=== PATIENT | female | born 1965 | race Caucasian/White ===

== ENCOUNTER 2023-07-02 06:15 | Day surgery (SDC) | payer OTHER, SELFPAY ==
[2023-07-02] VITALS (22 sets, daily range): BP systolic 86–117; BP diastolic 48–77; PULSE 56–77; RESP 14–16; TEMP 36.2–37; O2SAT 90–97; BMI 39.2
--- OUTSIDE RECORDS SUMMARY | 2023-07-02 06:16 | XMS_ITS | Referral Summary ---
Author Name Unknown Organization [facility] Address [address] [place] [address] Care Team Providers Care Vp Outcomes Name Role Phone Unavailable Primary Care Provider Unavailabl e Source Comments Patient records contain information from all sites at [facility]. For routine questions regarding patient records, call [phone] during business hours, M-F 8:00 AM - 5:00 PM Central Time. Record requests for emergency care only can be directed to [phone] at any time.[facility] Allergies Active Allergy Reactions Criticality Noted Date Comments Nsaids (Non-Steroidal Anti-Inflammatory Drug) Other (see comments) 06/02/2013 Patient had bariatric surgery. Should not ever take NSAIDS due to high risk for gastric ulcers. Medications Medication Sig Dispensed Refills Start Date End Date Status lidocaine 2 % mouth solution 05/28/2019 Active lidocaine-prilocaine (EMLA) 2.5-2.5 % cream 08/17/2019 Active ondansetron (ZOFRAN) 8 mg tablet Take 8 mg by mouth. 04/06/2019 Acti ve prochlorperazine (COMPAZINE) 10 mg tablet Take 10 mg by mouth. 04/06/2019 Acti ve miscellaneous medical supply [facility] CPAP machine for home use at pressure: 5-16 CM H20 , Heated humidifier x 1, Humidifier chamber x 1, nasal mask with cushion x 1, Heated tubing x 1, Headgear x 1, Filters: Disposable x 1pk & Reusable x 1pk, Length of Need: 99 months, Frequency of use: Daily 11/10/2018 Active anastrozole (ARIMIDEX) 1 mg tablet Take 1 mg by mouth daily. To start 1 week after radiation completes 09/15/2019 Active Active Problems Problem Noted Date Diagnosed Date Malignant Neoplasm Of Breast Lower Outer Quadrant Female Right 08/21/2019 Cancer Staging:Clinical: Unsigned Pathologic stage from 08/21/2019:Stage IIA(pT2, pN1a, cM0, G3, ER+, MI+, HER2-, Oncotype DX score: 36) - Unsigned Immunizations Name Administration Dates Next Due HepA Adult 02/14/2006,07/25/2004 Td (Adult), adsorbed 12/10/2003 Social History Tobacco Use Types Packs/Day Years Used Date Smoking Tobacco: Never Assessed Nutrition Answer Date Recorded Nutrition: EVOO Fat Source Unknown 04/15 Nutrition: Servings of Fruits/Vegetables per Day Not on file 04/15/2020 Dental Answer Date Recorded Dental: Regular Dentist Unknown 04/16/19 21 Sex and Gender Information Value Date Recorded Sex Assigned at Not on file Gender Identity Female 06/14/2020 4:15 PM CDT Sexual Orientation Straight 06/14/2020 4: 15 PM CDT Last Filed Vital Signs Vital Sign Reading Time Taken Comments Blood Pressure 115/52 08/27/2019 1:47 PM CDT Pulse 70 08/27/2019 1:47 PM CDT Temperature 36.5 ??C (97.7 ??F) 11/12/2019 3:00 PM CD T Respiratory Rate - - Oxygen Saturation - - Inhaled Oxygen Concentration - - Weight 77.3 kg (170 lb 6.7 oz) 03/29/2020 10:09 AM CATTLE CARE WORKER Height 160.4 cm (5' 3.15) 03/29/2020 10:[address] Body Mass Index 30.04 03/29/2020 10:09 AM CATTLE CARE WORKER Plan of Treatment Not on file Procedures Procedure Name Priority Date/Time Associated Diagnosis Comments EXTI COMPREHENSIVE METABOLIC PANEL, S/P Routine 01/18/2022 2:56 PM CATTLE CARE WORKER OUTSIDE MG MAMMOGRAM Routine 01/26/2019 9:45 AM CATTLE CARE WORKER from Last 3 Months or Most Recently Relevant to Health Maintenance Results * XR MAMMO POST CLIP PLCMT RT-Outside Mammogram (01/26/2019 9:45 AM CATTLE CARE WORKER) Narrative IIMS - 08/19/2019 9:15 AM CDT This order has been created and auto-finalized to support the import of outside images. If available, original interpretation can be found on the Media Tab in Chart Review, in Document Viewer, or as an image in QREADS. If a re-interpretation or overread is required please follow defined workflow. ?? Provider Not In System IMG BI PROCEDURES [facility]IMS NA from Last 3 Months or Most Recently Relevant to Health Maintenance
--- OUTSIDE RECORDS SUMMARY | 2023-07-02 06:16 | XMS_ITS | Clinical Summary ---
Author Name Unknown Organization [facility] Address [address] [place] [address] Care Team Providers Care Row Boss Hoeing Name Role Phone Unavailable Primary Care Provider Unavailabl e Source Comments Patient records contain information from all sites at [facility]. For routine questions regarding patient records, call [phone] during business hours, M-F 8:00 AM - 5:00 PM Central Time. Record requests for emergency care only can be directed to [phone] at any time.[facility] Allergies Active Allergy Reactions Criticality Noted Date [...] mouth. 04/06/2019 Acti ve miscellaneous medical supply [facility] CPAP machine for home use at pressure: [...] from 08/21/2019:Stage IIA(pT2, pN1a, cM0, G3, ER+, ME+, HER2-, Oncotype DX score: 36) - Unsigned [...] (170 lb 6.7 oz) 03/29/2020 10:09 AM LEGAL PROCESS SPECIALIST Height 160.4 cm (5' 3.15) 03/29/2020 10:[address] Body Mass Index 30.04 03/29/2020 10:09 AM LEGAL PROCESS SPECIALIST Plan of Treatment Health Maintenance Due Date Last Done Comments CT Colonography 1963 Cervical Cancer Screening 1965 Cologuard 1965 Colonoscopy 1965 Colorectal Cancer Screening 1965 FIT 1965 HIV Screening 1965 Hepatitis C Screening 1965 Lipid (Cholesterol) Screening 1963 COVID-19 Vaccine (#1) 07/26/1968 Zoster Vaccines (1 of 2) 07/26/2013 Mammogram 01/27/2020 01/26/2019, 01/26/2019 DTaP,Tdap,and Td Vaccines (2 - Td or Tdap) 01/06/2022 01/07/2012, 12/10/2003 Influenza Vaccine (#1) 2022 9, 10/24/2017, 10/26/2016, Additional history exists Depression Screening (Annual PHQ-2) 02/11/2023 Fasting Glucose for Diabetes Screening 01/18/2025 01/18/2022, 07/25/2021, 03/14/2021, Additional history exists Hepatitis B Vaccines Completed 09/06/2006, 04/10/2006, 03/13/2006 Pneumococcal vaccine (0-64 years) Aged Out No longer eligible based on patient's age to complete this topic Procedures Procedure Name Priority Date/Time Associated Diagnosis Comments EXTI COMPREHENSIVE METABOLIC PANEL, S/P Routine 01/18/2022 2:56 PM LEGAL PROCESS SPECIALIST OUTSIDE MG MAMMOGRAM Routine 01/26/2019 9:45 AM LEGAL PROCESS SPECIALIST from Last 3 Months or Most Recently Relevant to Health Maintenance Results * XR MAMMO POST CLIP PLCMT RT-Outside Mammogram (01/26/2019 9:45 AM LEGAL PROCESS SPECIALIST) Narrative IIMS - 08/19/2019 9:15 AM CDT This order has been created and auto-finalized to support the import of outside images. If available, original interpretation can be found on the Media Tab in Chart Review, in Document Viewer, or as an image in QREADS. If a re-interpretation or overread is required please follow defined workflow. ?? Provider Not In System IMG BI PROCEDURES Performing Organization Address City/State/[facility] Co de Phone Number IIMS NA from Last 3 Months or Most Recently Relevant to Health Maintenance
--- OUTSIDE RECORDS SUMMARY | 2023-07-02 06:16 | XMS_ITS ---
Author Name Unknown Organization [facility] Address [address] [place] [address] Care Team Providers Care Accounting System Expert Name Role Phone Unavailable Unavailable Unavailable Surgery Details Not on file Complications Check Surgery Details section. Procedure Estimated Blood Loss Check Surgery Details section. Procedure Findings Check Surgery Details section. Procedure Specimens Taken Check Surgery Details section.
--- OUTSIDE RECORDS SUMMARY | 2023-07-02 06:16 | XMS_ITS ---
Author Name Unknown Organization [facility] Address [address] [place] [address] Care Team Providers Care Unhairer Name Role Phone Unavailable Primary Care Provider Unavailabl e Active Problems Problem Noted Date Diagnosed Date Malignant Neoplasm Of Breast Lower Outer Quadrant Female Right 08/21/2019 Cancer Staging:Clinical: Unsigned Pathologic stage from 08/21/2019:Stage IIA(pT2, pN1a, cM0, G3, ER+, ID+, HER2-, Oncotype DX score: 36) - Unsigned Current Oncology Plans No current plan information found. Past Plans No past plan information found. Radiation Treatments * Plan Last Treated On Elapsed Days Fractions Treated Prescribed Fraction Dose Prescribed Total Dose [id number] 11/12/2019 35 25 of 25 200 cGy 5,000 cGy Reference Point Last Treated On Elapsed Days Session Dose Total Dose [id number] 11/12/2019 35 200 cGy 5,000 cGy
--- OUTSIDE RECORDS SUMMARY | 2023-07-02 06:17 | XMS_ITS | Clinical Summary ---
Author Name Unknown Organization [facility] [facility] Address [place], [place] [address] Care Team Providers Care Cane Pusher Name Role Phone Aliyah Steward Malou SMALL Primary Care Provider Maldonado Chambers RN Unavailable Unavailable Pankaj Esteves SENIOR SQL SERVER DBA Unavailable [phone] Lavonne Rodarte MD Unavailable [phone] Marsha Christianson OFFSET PLATE MAKER Unavailable Allergies Active Allergy Reactions Criticality Noted Date Comments Nsaids (Non-Steroidal Anti-Inflammatory Drug) Other - Describe In Comment Field 06/02/2013 Patient had bariatric surgery. Should not ever take NSAIDS due to high risk for gastric ulcers. Medications Medication Sig Dispensed Refills Start Date End Date Status multivitamin (MVI) tablet Take 1 Tablet by mouth once daily. 0 08/29/2021 Active Rkdgk-3-HPU-EPA-F nadine Oil 1,000 mg (120 mg-180 mg) cap Take 1 Capsule (1,000 mg) by mouth. 0 08/29/2021 Active nystatin (MYCOSTATIN) creamIndications: Fissure in skin Apply topically to affected area(s) two times daily. 30 g 2 05/16/2022 Active CPAPIndications:O SA on CPAP CPAP machine for home use at pressure: 4-16 CM H20 , Heated humidifier x 1, Humidifier chamber x 1, nasal mask with cushion x 1, Heated tubing x 1, Headgear x 1, Filters: Disposable x 1pk & Reusable x 1pk, Length of Need: 99 months, Frequency of use: Daily 1 Each 12 02/20/2023 Active CPAPIndications:O SA on CPAP CPAP machine for home use at pressure: 5-16 CM H20 , Heated humidifier x 1, Humidifier chamber x 1, nasal mask with cushion x 1, Heated tubing x 1, Headgear x 1, Filters: Disposable x 1pk & Reusable x 1pk, Length of Need: 99 months, Frequency of use: Daily 1 Device 11 11/10/2018 06/13/2023 Discontinued (*Patient states no longer taking) Active Problems Problem Noted Date Diagnosed Date Chemotherapy induced neutropenia 04/09/2019 Invasive ductal carcinoma of breast, female, rig ht 03/31/2019 Cancer Staging:Clinical: Unsigned KAHLIL on CPAP 10/03/2016 Achlorhydria 06/02/2013 Vitamin B12 deficiency 06/02/2013 Meniere's disease 01/12/2013 Overview: 2010: left endolymphatic sac enhancement Anosmia 01/12/2013 Overview: Diagnoses 06/2004 Major depressive disorder, r ecurrent episode, severe, without mention of psychotic behavior 12/01/2012 Generalized anxiety disorder 12/01/2012 Bereavement, uncomplicated 03/03/2010 Sensorineural hearing loss, bilateral 06/28/2009 Vitamin D deficiency 05/28/2008 Cramp of limb 09/15/2007 Pain in joint, lower leg 09/15/2007 Obesity, unspecified 09/15/2007 Mixed hyperlipidemia 01/01/2007 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 06/2006 Resolved Problems Problem Noted Date Diagnosed Date Resolved Date Morbid obesity 02/13/2013 10/31/2017 Type II or unspecified type diabetes mellitus without mention of complication, not stated as uncontrolled 11/06/2012 06/03/2014 Vitamin D deficiency 01/16/2012 013 Adjustment disorder with mix ed anxiety and depressed mood 04/27/2008 06/03/2014 Ingrowing nail 10/10/2006 09/15/2007 Encounters Date Type Department Care Team Description 06/13/2023 7:50 AM CDT Preop Visit [address] [id number] Aliyah Steward, Pre-Op Exam (R knee replacement (full) July [address] [facility] [address] terry) 06/13/2023 Travel 05/14/2023 Telephone [facility] [address] [place], [place] [id number] Marsha Christianson, OFFSET PLATE MAKER Appointment 05/07/2023 3:30 PM CDT Office Visit [facility] [address] [place] [address] Dre, Coreen Boston AuD Hearing Aid (adjustment) 05/06/2023 8:00 AM CDT Office Visit [facility] [address] [place] [address] Dre, Coreen Boston, AuD Hearing Aid (malfunction) 05/06/2023 Travel 04/24/2023 12:30 PM CDT Office Visit [facility] [address] [place] [address] Dre, Coreen Boston AuD Hearing Aid (Problem - walk in/drop off) 04/24/2023 Travel from Last 3 Months Immunizations Name Administration Dates Next Due Hepatitis A (Adult) 02/14/2006,07/25/2004 Hepatitis B (Adult) 09/06/2006,04/10/2006,200609/10/2006 Influenza Virus, Unspecified 11/25/2014 Influenza, IIV3 (Age 6-35 mos) 10/26/2014 Influenza, IIV3 (Age >=3 years) 10/27/19 17,01/03/2014,11/10/2012, 2,11/15/2010,12/02/2009 Influenza, IIV4 10/30/2018,10/24/2017,11/05/2012 Td (Age >=7 Years) 12/10/2003 Tdap 01/07/2012 Family History Medical History Relation Name Comments Cancer-colon Father Hypertension Father Diabetes Mother Hyperlipidemia Mother Hypertension Mother Cancer-breast No Family History Relation Name Status Comments Father Stroke Mother Diabetes Social History Tobacco Use Types Packs/Day Years Used Date Smoking Tobacco: Never Smokeless Tobacco: Never Tobacco Cessation:Counseling Given: Yes Alcohol Use Standard Drinks/Week Comments Not Currently 0 (1 standard drink = 0.6 oz pur e alcohol) rare PHQ-2 Answer Date Recorded PHQ-2 Score 0 01/22/2019 Social Connections Answer Date Recorded Frequency of Communication with Friends and Fami ly Not on file 02/09/2021 Financial Resource Strain Answer Date R ecorded Difficulty of Paying Living Expenses Not on file 02/09/2021 Difficulty of Paying Living Expenses Not on file 02/09/2021 Sex and Gender Information Value Date Recorded Sex Assigned at Not on file Gender Identity Not on file Sexual Orientation Not on file Obstetrics History Para Term AB IAB SAB Ectopic Multiple Livin g Live Births 0 0 0 0 0 0 0 0 0 0 Last Filed Vital Signs Vital Sign Reading Time Taken Comments Blood Pressure 92/62 06/13/2023 8:13 AM CDT Pulse 65 06/13/2023 8:13 AM CDT Temperature 36.6 ??C (97.9 ??F) 02/01/2023 3:10 PM CS T Respiratory Rate 16 06/13/2023 8:13 AM CDT Oxygen Saturation 98% 06/13/2023 8:13 AM CDT Inhaled Oxygen Concentration - - Weight 103.6 kg (228 lb 8 oz) 06/13/2023 8:13 AM CDT Height 162.6 cm (5' 4) 06/13/2023 8:13 AM CDT Body Mass Index 39.22 06/13/2023 8:13 AM CDT Plan of Treatment Upcoming Encounters Date Type Department Care Team (Late st Contact Info) Description 09/16/2023 3:30 PM CDT Appointment [facility] [address] [place] [address] 09/19/2023 3:30 PM CDT Office Visit [facility] [address] [place] [address] Lavonne Rodarte MD [address] [place] [address] Health Maintenance Due Date Last Done Comments COVID-19 vaccine series (#1) 07/26/1968 Pneumococcal series for age 6-64 (1 of 2 - PCV) 07/26/1969 HIV for age 15-65 07/26/1978 Hepatitis C screening for ag e 18-79 07/26/1981 Zoster (shingles) series for age 50+ (1 of 2) 07/26/1982 Pap test for age 21-65 01/06/2011 01/07/2008, 2003 Fecal testing non-DNA (FIT,FOBT,iFOBT) for age 45-75 10/30/2017 10/30/2016, 11/20/2014 Depression screening for age 12+ 01/27/2020 01/26/2019, 01/22/2019, 10/01/2016, Additional history exists Tetanus booster 01/06/2022 01/07/2012, 12/10/2003 Influenza for age 50-64 10/13/2023 10/31/19, 10/24/2017, 10/26/2016, Additional history exists BMI (ht and wt on same day) for age 18+ 06/12/2024 06/13/2023, 02/20/2023, 08/29/2021, Additional history exists Lipids for age 45-75 06/12/2028 06/13/2023, 06/15/2015, 10/15/2012, Additional history exists Tdap Completed 01/07/2012 Medical Devices Implanted Type Area Second Miller Device Identifier Shelf Expiration Date Model / Serial / Lot Power Port Isp Mri 6fr [id number] - [id number] Implanted:Qty: 1 on 04/02/2019 by David Gonzales DO at [facility] Left: Chest [employer] 05/11/2020 [id number] / / [id number] Procedures Procedure Name Priority Date/Time Associated Diagnosis Comments CBC WITH AUTO DIFFERENTIAL Routine 06/13/2023 8:58 AM CDT Preoperative general physical examination Mixed hyperlipidemia LIPID PANEL W REFLEX MEASURED LDL Routine 06/13/2023 8:58 AM CDT Mixed hyperlipidemia CBC WITH AUTO DIFFERENTIAL Routine 06/13/2023 8:58 AM CDT Preoperative general physical examination Mixed hyperlipidemia COMP METABOLIC PANEL Routine 06/13/2023 8:58 AM CDT Preoperative general physical examination Mixed hyperlipidemia OCCULT BLOOD IFOBT STOOL Routine 10/30/2016 3:45 PM CDT Screening for colon cancer FLEET SERVICE MANAGER THIN PREP PAP SCREEN IMAGED Routine 01/07/2008 10:35 AM OFFAL BALER Screening for Malignant Neoplasm of the Cervix from Last 3 Months or Most Recently Relevant to Health Maintenance Results * (ABNORMAL) CBC WITH AUTO DIFFERENTIAL (06/13/2023 8:58 AM CDT) WHITE BLOOD COUNT 6.5 4.5 - 11.0 thou/cu mm 06/13/2023 9:40 AM [facility] RED BLOOD COUNT 3.72(L) 4.00 - 5.20 mil/cu mm 06/13/2023 9:40 AM [facility] HEMOGLOBIN 12.4 12.0 - 16.0 g/dL 06/13/2023 9:40 AM [facility] HEMATOCRIT 37.4 33.0 - 51.0 % 06/13/2023 9:40 AM [facility] MCV 101(H) 80 - 100 fL 06/13/2023 9:40 AM [facility] MCH 33.3 26.0 - 34.0 pg 06/13/2023 9:40 AM [facility] MCHC 33.2 32.0 - 36.0 g/dL 06/13/2023 9:40 AM [facility] RDW 13.7 11.5 - 15.5 % 06/13/2023 9:40 AM [facility] PLATELET COUNT 231 140 - 440 thou/cu mm 06/13/2023 9:40 AM [facility] MPV 9.5 6.5 - 11.0 fL 06/13/2023 9:40 AM [facility] % NEUT 48.1 % 06/13/2023 9:40 AM [facility] % LYMPH 38.7 % 06/13/2023 9:40 AM [facility] % MONO 10.4 % 06/13/2023 9:40 AM [facility] % EOS 2.0 % 06/13/2023 9:40 AM [facility] % BASO 0.8 % 06/13/2023 9:40 AM T [facility] ABSOLUTE NEUTROPHILS 3.1 1.7 - 7.0 thou/cu mm 06/13/2023 9:40 AM T [facility] ABSOLUTE LYMPHOCYTES 2.5 0.9 - 2.9 thou/cu mm 06/13/2023 9:40 AM T [facility] ABSOLUTE MONOCYTES 0.7 <0.9 thou/cu mm 06/13/2023 9:40 AM [facility] ABSOLUTE EOSINOPHILS 0.1 <0.5 thou/cu mm 06/13/2023 9:40 AM [facility] ABSOLUTE BASOPHILS 0.1 <0.3 thou/cu mm 06/13/2023 9:40 AM [facility] Blood BLOOD SPECIMEN / Unknown Butterfly / Unknown 06/13/2023 8:58 AM CDT 06/13/2023 8:59 AM CDT Aliyah Steward DO HEMATOLOGY [facility] [address] [place] [address] * (ABNORMAL) LIPID PANEL W REFLEX MEASURED LDL (06/13/2023 8:58 AM CDT) CHOLESTEROL,TOTAL 228(H) 100 - 199 mg/dL 06/13/2023 9:59 AM [facility] Comment: Cholesterol, Total Reference Ranges Desirable <200 mg/dL Borderline 200-239 mg/dL High >=240 mg/dL TRIGLYCERIDES 234(H) <150 mg/dL 06/13/2023 9:59 AM [facility] HDL CHOLESTEROL 50 >40 mg/dL 9:59 AM [facility] NON-HDL CHOLESTEROL 178(H) <145 mg/dl 06/13/2023 9:59 AM [facility] CHOL/HDL RATIO 4.56(H) <4.50 06/13/2023 9:59 AM [facility] LDL CHOLESTEROL 131(H) <=130 mg/dL 06/13/2023 9:59 AM [facility] VLDL CHOLESTEROL 47(H) <=30 mg/dL 06/13/2023 9:59 AM [facility] PROVIDER ORDERED STATUS RANDOM 06/13/2023 9:59 AM [facility] Blood BLOOD SPECIMEN / Unknown Butterfly / Unknown 06/13/2023 8:58 AM CDT 06/13/2023 8:59 AM T Aliyah Steward DO CHEMISTRY [facility] [address] [place] [address] * (ABNORMAL) COMP METABOLIC PANEL (06/13/2023 8:58 AM CDT) SODIUM 139 136 - 145 mmol/L 06/13/2023 9:59 AM [facility] POTASSIUM 4.0 3.5 - 5.1 mmol/L 06/13/2023 9:59 AM [facility] CHLORIDE 102 98 - 107 mmol/L 06/13/2023 9:59 AM [facility] CO2,TOTAL 27 22 - 29 mmol/L 06/13/2023 9:59 AM [facility] ANION GAP 10 5 - 18 06/13/2023 9:59 AM [facility] GLUCOSE 104(H) 70 - 99 mg/dL 06/13/2023 9:59 AM [facility] CALCIUM 9.6 8.6 - 10.0 mg/dL 06/13/2023 9:59 AM [facility] BUN 13 6 - 20 mg/dL 06/13/2023 9:59 AM [facility] CREATININE 0.55 0.50 - 0.90 mg/dL 06/13/2023 9:59 AM [facility] BUN/CREAT RATIO 24(H) 10 - 20 9:59 AM T [facility] eGFR >90 >90 mL/min/1.7 3m2 06/13/2023 9:59 AM T [facility] Comment:As of 2021, eG FR is calculated by the CKD-EPI creatinine equation without race adjustment. ??eGFR can be influenced by muscle mass, exercise, and diet. ??The reported eGFR is an estimation only and is only applicable if the renal function is stable. ALBUMIN 4.1 4.0 - 4.9 g/dL 06/13/2023 9:59 AM T [facility] PROTEIN,TOTAL 7.7 6.0 - 8.0 g/dL 06/13/2023 9:59 AM [facility] BILIRUBIN,TOTAL 0.4 0.0 - 1.2 mg/dL 06/13/2023 9:59 AM [facility] ALK PHOSPHATASE 87 35 - 104 IU/L 06/13/2023 9:59 AM [facility] ALT (SGPT) 9(L) 10 - 35 IU/L 06/13/2023 9:59 AM [facility] AST (SGOT) 27 10 - 35 IU/L 06/13/2023 9:59 AM [facility] Blood BLOOD SPECIMEN / Unknown Butterfly / Unknown 06/13/2023 8:58 AM CDT 06/13/2023 8:59 AM CDT Aliyah Steward DO CHEMISTRY Performing Organization Address City/State/[facility] Co de Phone Number [facility] [address] [place] [address] * OCCULT BLOOD IFOBT STOOL (10/30/2016 3:45 PM CDT) STOOL BLOOD ,IFOBT Negative Negative 10/30/2016 4:08 PM CDT [facility] Stool STOOL SPECIMEN / Unknown Non-Blood / Unknown 10/30/2016 3:45 PM CDT 10/30/2016 3:46 PM CDT Aliyah Steward DO [facility] [address] [place] [address], * FLEET SERVICE MANAGER THIN PREP PAP SCREEN IMAGED (01/07/2008 10:35 AM OFFAL BALER) CYTOLOGY ??CYTOPATHOLOGY REPORT ??[facility] [place] ?? Status: Final Report ? [id number] ?? CLINICAL INFORMATION ?Date of Last LMP ?: 12/27/2007 ?Last Pap Date ? : 12/10/03 ?Last Pap Result ? : NIL ?ABN [place]/Bx Past 5 YRS: None ?Hormone Usage ? : BCP/OCP/Patch/Ring ?Menstrual Status ?: Regular Periods ?[place]/Bx done today ?: No ?Additional Data ? : None given ?? HPV Request ?: HPV if ASCUS ?? SPECIMEN SOURCE ?: Cervical/vaginal ThinPrep Vial, screening ?? SPECIMEN ADEQUACY ?: Satisfactory for evaluation Endocervical ?component present. ? INTERPRETATION/RES ULT: ?Negative for intraepithelial lesion or malignancy (NIL) ? Cytology 1st Screener : ??djs ?? Signed by: ? djs ?? This specimen was screened by the FDA approved ThinPrep Imaging ?? System and manually reviewed. ?? NOTE: The Pap test is a screening technique, not a diagnostic ?? procedure. It is used primarily to screen for squamous cancers and ?? precursor lesions. Published studies have shown that it is subject to ?? both false negative and false positive results. The pap test should ?? not be used as the sole means to diagnose or exclude pre-malignant and ?? malignant lesions. ?? COLLECTED: 01/07/08 ?? ACCESSIONED: 01/07/08 ?? SIGNED: 01/16/08 [facility] PAP [place] CODE NIL [facility] Cervical (Cervical) 01/07/2008 10:35 AM OFFAL BALER 01/07/2008 10:33 AM OFFAL BALER Tati Freitas William PATHOLOGY/CYTOLOGY [facility] [place]NAL ZIP [address] [address] from Last 3 Months or Most Recently Relevant to Health Maintenance Advance Directives Documents on File Type Date Recorded Patient Director Pharmacology Expl anation Healthcare Directive 02/25/2019 12:00 AM 0 02/25/2019 * Full Code (Latest Code Status on File) Date Activated Date Inactivated Comments 04/02/2019 10:28 AM 04/02/2019 6:03 PM Question Answer Comments Code Status Discussion: Discussed * Full Code Date Activated Date Inactivated Comments 02/25/2019 10:00 AM 02/26/2019 4:17 PM Question Answer Comments Code Status Discussion: Not Discussed * Full Code Date Activated Date Inactivated Comments 06/01/2013 6:07 AM 06/02/2013 4:56 PM Care Teams Cane Pusher Relationship Specialty Start Date End Date Aliyah Steward DO [address] [facility] [place] [address] PCP - General Internal Medicine 11/07/15 Maldonado Chambers, RN [address] [facility] [place] [address] Cancer Nurse Coordinator Registered Nurse 01/30/19 Danielito, COLBY Hassan [address] [place] [address] Third Grade Teacher 04/08/19 Lavonne Rodarte MD [address] [facility] [place] [address] Oncology Hematology and Oncology 09/14/19 Marsha Christianson, OFFSET PLATE MAKER [address] [place] [address] Oncology Nurse Practitioner - Family 09/14/19
[2023-07-02] MEDS: SODIUM CHLORIDE 0.9 % (FLUSH) 10 ML SYRINGE IVF (06:45)
[2023-07-02] MEDS: LACTATED RINGERS 1000 ML 1,000 ML 100 ML IV ×2 (06:45→08:06)
[2023-07-02] MEDS: ACETAMINOPHEN 500 MG TABLET 1000 MG PO ×2 (06:45→12:30)
[2023-07-02] MEDS: OXYCODONE (CR) 10 MG TAB.ER.12H PO (06:45)
[2023-07-02] MEDS: fentaNYL 100 MCG/2 ML inj IVP (07:00)
[2023-07-02] MEDS: MIDAZOLAM HCL 1 MG/ML inj IVP (07:00)
--- NOTE | 2023-07-02 07:12 | SUR.PREOP ---
TIME?OUT:?0659 PT/RN/MDA?VERIFICATION?OF?SURGICAL?SITE Right Knee,?PROCEDURE Nerve Block,?AND?CONSENT OBTAINED?PRIOR?TO?INVASIVE?PROCEDURE.
--- NOTE | 2023-07-02 07:19 | W.PM.NB ---
Nerve Block Nerve Block Time Seen by Provider: 07:00 Date Seen: 07/02/23 Type of block requested by surgeon for post-operative analgesia: adductor canal Side: right Time out performed: Yes Verification of patient name: Yes Verification of date of : Yes Site marking: site marked Name of person performing procedure: Eulalio Continuous monitoring Was continuous monitoring of O2 sat, B/P, phototypesetting equipment monitor, recorded every 15 minutes?: Yes Procedure Checklist: sterile prep, needles and gloves Ultrasound guided. Images saved: Yes Medications given in 5ml increments after negative aspiration: Ropivicaine %: 0.5 mL: 20 Needle gauge: 20 Decadron (mg): 10 Precedex (mcg): 25 Patient tolerated procedure well: Yes Additional comments: Needle noted adjacent to nerve Block Charges Block Charge (with Pro Fee): Femoral Nerve Use of Ultrasound Machine for Block: Yes- US Guidance/pain block
--- NOTE | 2023-07-02 07:20 | W.PM.NB ---
Nerve Block Nerve Block Time Seen by Provider: 07:00 Date Seen: 07/02/23 Type of block requested by surgeon for post-operative analgesia: geniculars Side: right Time out performed: Yes Verification of patient name: Yes Verification of date of : Yes Site marking: site marked Name of person performing procedure: Eulalio Continuous monitoring Was continuous monitoring of O2 sat, B/P, residential monitor, recorded every 15 minutes?: Yes Procedure Checklist: sterile prep, needles and gloves Medications given in 5ml increments after negative aspiration: Ropivicaine %: 0.5 mL: 9 Needle gauge: 25 Patient tolerated procedure well: Yes Block Charges Block Charge (with Pro Fee): Genicular Nerve Block Use of Ultrasound Machine for Block: No
--- NOTE | 2023-07-02 07:20 | W.ANESCHARGE ---
Anesthesia Charges Start Date/Time Anesthesia Start Date: 07/02/23 Anesthesia Start Time: 07:30 Stop Date/Time Anesthesia Stop Date: 07/02/23 Anesthesia Stop Time: 10:21
[2023-07-02] MEDS: TRANEXAMIC ACID 100 MG/ML INJ 1000 MG IV (07:45)
[2023-07-02] MEDS: CEFAZOLIN 2 GM INJ IVP (07:45)
--- NOTE | 2023-07-02 09:26 | XR_ITS ---
Patient: HAILEY DEMPSEY Facility:?[facility] Patient ID:?[id number] Site Patient ID:?[id number] Site :?1965 Study:?XRay-Knee Right Post op-07/02/2023 10:44:43 AM Ordering Physician:Hector Watt Final Report: Indication: Postop Technique: Two views right knee Findings/Impression: Hardware from a right total knee arthroplasty is in satisfactory position. Bone alignment is normal. No sign of acute fracture. Postop changes are within normal limits. Dictated by Kevon Richards MD @ 07/02/2023 11:53:11 AM Signed by:?Kevon Richards MD @07/02/2023 11:53:11 AM (Electronic Signature)
--- NOTE | 2023-07-02 09:28 | PM.ORPRC ---
Procedure Note Date of procedure: 07/02/23 Procedure: PREOPERATIVE DIAGNOSIS: Right knee osteoarthritis, retained hardware POSTOPERATIVE DIAGNOSIS: Right knee osteoarthritis, retained hardware NAME OF OPERATION: Right total knee arthroplasty, hardware removal deep SURGEON: Nazario Watt MD APARTMENT RENTAL CLERK: Tova Luong PA-C ANESTHESIA: Spinal ESTIMATED BLOOD LOSS: 0 mL COMPLICATIONS: None SPECIMENS: None DRAINS: None PREOPERATIVE ANTIBIOTICS: Ancef 2 grams, antibiotic impregnated cement IMPLANTS: 1. J&J Attune revision CRS # 5 posterior stabilized femur with a 14 mm x 50 mm cemented stem 2. # 5 revision CRS fixed-bearing tibia, with a 14 mm x 50 mm cemented stem 3. # 5 posterior stabilized, 5 mm fixed-bearing polyethylene 4. 38 patella INDICATIONS: The patient is a 57-year-old with a longstanding history of severe, unrelenting right knee pain secondary to end-stage (grade IV) right knee osteoarthritis. Despite appropriate nonoperative management, including activity modification, anti-inflammatories, vlea-ari-ojfhfwn pain medication, bracing, physical therapy, and injections they continue to have pain and disability. Operative intervention was offered. She has previously undergone medial opening wedge proximal tibial osteotomy with the Arthrex peek block and screws for fixation. The risks, benefits and expected outcomes were discussed in detail. These included but were not limited to: Infection, bleeding, injury to blood vessel or nerve, venous thromboembolism. All questions were answered to their satisfaction. Use of an assistant teaching professor was necessary throughout the case for patient positioning and safety, soft tissue retraction, and closure. A modifier 22 should be added to this case. The patient's previous surgery, with retained hardware and scarring made exposure extremely difficult. Additionally, the patient's BMI of 40 added time and expense with stems on both sides of the joint to reduce the risk of aseptic loosening. PROCEDURE: Spinal anesthesia was administered. The patient was placed supine on the operating table. The assistant teaching professor made sure the patient was positioned appropriately. The lower extremity was prepped and draped in the usual sterile fashion. The limb was exsanguinated with the Bennett bandage. The pneumatic tourniquet was inflated to 300 mmHg. A standard anterior incision was made with the knee in flexion. Subcutaneous dissection was sharply taken through fascial layer #1. Full-thickness medial and lateral flaps were elevated. The assistant teaching professor retracted the soft tissues and protected them throughout the case. A standard subvastus approach was made. The patella was everted. The infrapatellar fat pad was resected. The menisci and cruciate ligaments were sharply d?brided. Marginal osteophytes were d?brided with the rongeur. The drill was used to penetrate the femoral canal. The canal was aspirated and irrigated with pulse lavage. The intramedullary femoral guide was placed for a 5-degree valgus cut, removing 10 mm off the distal femur. The saw was used to make the cut. Whitesides line and the trans epicondylar axis were marked. The femoral sizing guide was pinned onto the distal femur. Three degrees of external rotation nicely parallels the transepicondylar axis. Pins were placed for posterior referencing. The four-in-one cutting guide was pinned onto the distal femur. The anterior, posterior, and chamfer cuts were made. The assistant teaching professor protected the collateral ligaments. The revision trial was placed. The box cuts were made. The drill was used x2. The stemmed, boxed trial was placed and was an excellent fit. Attention was then turned to the proximal tibia. The extramedullary tibial guide was placed for a neutral varus/valgus cut with 5 degrees of posterior slope, removing 2 mm based off the medial tibial surface. The assistant teaching professor protected the collateral ligaments and the neurovascular bundle. The saw was used to make the cut. Trial components were placed. The knee was tight in both flexion and extension. Therefore, we replaced the tibial cutting guide, advancing it 2 mm. The saw was used to make the cut. Trial components were placed. Now the knee was nicely balanced in both flexion and extension. This cut through the tips of the peak screws used to fix the proximal tibial osteotomy. The trial components were removed. The tray was placed in appropriate rotation, parallel to our tibial cutting pins. It was pinned by the assistant teaching professor and the drill x2 was used. It was more difficult to get the drill to advanced down the canal, because of the peek screws crossing the tibia. We removed several parts of the screws, through the canal. We were able to advance the drill to the appropriate depth, without penetrating the cortex. The stemmed tibial trial was placed. The punch was used. The tray was removed. The punch was used again. Attention was then turned to the patella. [place] patellar thickness was 22.5 mm. The lobster claw resection guide was used with the 9.5 mm adolfo. The saw was used to make the cut. Drill holes were made by the assistant teaching professor. The trial was placed and was an excellent fit. Cancellous surfaces were irrigated with pulse lavage and thoroughly dried by the assistant teaching professor. We cemented the tibial component, then the femoral component. We impacted the 5 mm polyethylene onto the tibial tray. The knee was brought into full extension. We then cemented the patellar component. Excessive cement was removed. The cement was allowed to harden. The knee was taken through a range of motion and was found to be nicely balanced in both flexion and extension. The patella tracks centrally. The assistant teaching professor did a three minute dilute Betadine solution soak. The assistant teaching professor irrigated the wound with 3 liters of normal saline via pulse lavage. The assistant teaching professor reapproximated the extensor mechanism with #1 Vicryl in an interrupted eiefez-cb-sbqjz fashion. The assistant teaching professor then ran the extensor mechanism with a #1 PDO Stratafix. The assistant teaching professor closed the subcutaneous tissues with a 3-0 Stratafix and the skin with a running 3-0 Stratafix in a subcuticular fashion. Glue was used to seal the skin. The assistant teaching professor placed a dry dressing. Sponge and needle counts were correct x2. The patient tolerated the procedure well. There were no apparent complications. They were carefully transferred to the hospital bed and taken to the postanesthesia care unit in satisfactory condition. PLAN: The patient will be mobilized with physical therapy. Aspirin will be used for DVT prophylaxis. They will be discharged to home once medically appropriate.
[2023-07-02] MEDS: BUPIVACAINE 0.25% 30 ML INJECTION (10:12)
[2023-07-02] MEDS: methylPREDNISolone acetate 80 MG/ML INJ 40 MG INTRA-ARTI (10:12)
--- NOTE | 2023-07-02 10:46 | W.ANESCHARGE ---
Anesthesia Charges Start Date/Time Anesthesia Start Date: 07/02/23 Anesthesia Start Time: 07:30 Stop Date/Time Anesthesia Stop Date: 07/02/23 Anesthesia Stop Time: 10:21
[2023-07-02] MEDS: OXYCODONE 5 MG TABLET PO (12:30)
== END 2023-07-02 14:13 | disposition home or self-care (01) ==
LOC: OR 06:15
PROVIDERS: PCP Internal Medicine; Visit Provider Orthopaedic Surgery
PROC: (CPT 27447; principal; 2023-07-02 07:45)
DX: M17.11 Unilateral primary osteoarthritis, right knee (principal); M25.561 Pain in right knee; G89.18 Other acute postprocedural pain; E66.9 Obesity, unspecified; Z68.41 Body mass index [BMI] 40.0-44.9, adult; G47.33 Obstructive sleep apnea (adult) (pediatric)
CPT/HCPCS: 27447; 20680; 01402; 64447; 64454; 73560; 76942; 97110; 97116; 97161; A9270; C1776; J0665; J0690; J1010; J1100; J2250; J2405; J2704; J2795; J3010; J3490; J7120

== ENCOUNTER 2023-08-20 09:30 | Outpatient (RCR) | payer OTHER, SELFPAY | END 2023-08-20 11:09 | disposition home or self-care (01) | PROVIDERS: PCP Internal Medicine; Visit Provider Orthopaedic Surgery | DX: M17.0 Bilateral primary osteoarthritis of knee (principal); Z51.89 Encounter for other specified aftercare | CPT/HCPCS: 97110; 97140; 97161; 97535 ==

== ENCOUNTER 2024-06-23 06:12 | Day surgery (SDC) | payer OTHER, SELFPAY ==
[2024-06-23] VITALS (13 sets, daily range): BP systolic 85–123; BP diastolic 54–77; PULSE 52–72; RESP 16–22; TEMP 36.2–36.8; O2SAT 90–98; BMI 39.3
[2024-06-23] MEDS: LACTATED RINGERS 1000 ML 1,000 ML 100 ML IV (06:51)
[2024-06-23] MEDS: SODIUM CHLORIDE 0.9 % (FLUSH) 10 ML SYRINGE IVF (06:51)
[2024-06-23] MEDS: CEFAZOLIN 1 GM inj IVP (07:25)
[2024-06-23] MEDS: BUPIVACAINE 0.25% 30 ML INJECTION (07:52)
--- NOTE | 2024-06-23 08:09 | PM.ORPRC ---
Procedure Note Date of procedure: 06/23/24 Procedure: PREOPERATIVE DIAGNOSIS: Right total knee arthroplasty patellar clunk syndrome POSTOPERATIVE DIAGNOSIS: Right total knee arthroplasty patellar clunk syndrome NAME OF OPERATION: Right total knee arthroplasty arthroscopic debridement SURGEON: Nazario Watt MD AEROSPACE QUALITY ENGINEER: Tova Luong PA-C, Susanna Garcia, MS4 ANESTHESIA: Spinal ESTIMATED BLOOD LOSS: 0 mL COMPLICATIONS: None SPECIMENS: None DRAINS: None PREOPERATIVE ANTIBIOTICS: Ancef 2 gram INDICATIONS: The patient is a 58-year-old with a history of right total knee arthroplasty patellar clunk syndrome. Operative intervention was recommended. The risks, benefits and expected outcomes were discussed in detail. These included but were not limited to: Infection, bleeding, injury to blood vessel or nerve, venous thromboembolism. All questions were answered to their satisfaction. PROCEDURE: Spinal anesthesia was administered. The patient was placed supine on the operating room table. The right lower extremity was prepped and draped in the usual sterile fashion. The limb was exsanguinated with the Bennett bandage. The pneumatic tourniquet was inflated to 225 mmHg. A standard anterolateral portal was established. The arthroscope was introduced. The working portal was established anteromedially. Diagnostic arthroscopy was performed with findings as follows: The patellar component is intact with circumferential scarring surrounding it. The femoral component is normal, the tibial polyethylene is normal. The scarring posterior to the patellar tendon was debrided with the radiofrequency probe and shaver. A superolateral portal was placed. Then we aggressively debrided around the patellar component and posterior to the quads tendon with the shaver and radiofrequency probe. Arthroscopic instruments were removed, the portal sites were closed with a 3-0 nylon. Portals were injected with 0.25% Marcaine without epinephrine. A dry dressing was applied, the tourniquet was released. Sponge and needle counts were correct x 2. The patient tolerated the procedure well. There were no apparent complications. They were carefully transferred to the hospital bed and taken to the postanesthesia care unit in satisfactory condition. PLAN: The patient will be discharged to home. They may weightbear as tolerates. Range of motion will be unrestricted. They will follow up in the office in 2 weeks for a wound check and suture removal.
--- NOTE | 2024-06-23 08:36 | P.ANES_ITS ---
Anesthesia Charges Start Date/Time Anesthesia Start Date: 06/23/24 Anesthesia Start Time: 07:14 Stop Date/Time Anesthesia Stop Date: 06/23/24 Anesthesia Stop Time: 08:20 Coding CPT Codes CPT Codes: ANESTH KNEE JOINT SURGERY - 55807 ([id number]) P3 - PATIENT W/SEVERE SYS DISEASE, QK - RENTAL BOATS CARETAKER 2-4 CNCRNT ANES PROC, QX - DRAG DOWN SVC W/ MD MED DIRECTION
--- NOTE | 2024-06-23 08:36 | W.ANESCHARGE ---
Anesthesia Charges Start Date/Time Anesthesia Start Date: 06/23/24 Anesthesia Start Time: 07:14 Stop Date/Time Anesthesia Stop Date: 06/23/24 Anesthesia Stop Time: 08:20 Coding CPT Codes CPT Codes: ANESTH KNEE JOINT SURGERY - 46092 ([id number]) P3 - PATIENT W/SEVERE SYS DISEASE, QK - DISTRICT WIRE CHIEF 2-4 CNCRNT ANES PROC, QX - CASTING MACHINE OPERATOR HELPER SVC W/ MD MED DIRECTION
--- NOTE | 2024-06-23 09:25 | P.ANES_ITS ---
Anesthesia Charges Start Date/Time Anesthesia Start Date: 06/23/24 Anesthesia Start Time: 07:14 Stop Date/Time Anesthesia Stop Date: 06/23/24 Anesthesia Stop Time: 08:20 Coding CPT Codes CPT Codes: ANESTH KNEE JOINT SURGERY - 02157 ([id number]) QK - PHOTO CHECKER AND ASSEMBLER 2-4 CNCRNT ANES PROC, QX - BUSINESS SOLUTIONS CONSULTANT SVC W/ MD MED DIRECTION, P3 - PATIENT W/SEVERE SYS DISEASE
--- NOTE | 2024-06-23 09:25 | W.ANESCHARGE ---
Anesthesia Charges Start Date/Time Anesthesia Start Date: 06/23/24 Anesthesia Start Time: 07:14 Stop Date/Time Anesthesia Stop Date: 06/23/24 Anesthesia Stop Time: 08:20 Coding CPT Codes CPT Codes: ANESTH KNEE JOINT SURGERY - 94000 ([id number]) QK - COMMERCIAL LOAN REVIEWER 2-4 CNCRNT ANES PROC, QX - PERSONAL LINES ADVISOR SVC W/ MD MED DIRECTION, P3 - PATIENT W/SEVERE SYS DISEASE
== END 2024-06-23 10:04 | disposition home or self-care (01) ==
LOC: OR 06:14
PROVIDERS: PCP Internal Medicine; Visit Provider Orthopaedic Surgery
PROC: (CPT 29870; principal; 2024-06-23 07:15)
DX: M25.861 Other specified joint disorders, right knee (principal); Z96.651 Presence of right artificial knee joint
CPT/HCPCS: 29877; 01400; J0665; J0690; J1100; J2250; J2371; J2405; J2704; J3010; J7120

== ENCOUNTER 2024-10-13 06:03 | Day surgery (SDC) | payer OTHER, SELFPAY ==
[2024-10-13] VITALS (22 sets, daily range): BP systolic 83–108; BP diastolic 48–74; PULSE 55–72; RESP 11–18; TEMP 36.2–36.6; O2SAT 92–99; BMI 39.0
[2024-10-13] MEDS: LACTATED RINGERS 1000 ML 1,000 ML 100 ML IV ×3 (06:10→10:35)
[2024-10-13] MEDS: OXYCODONE (CR) 10 MG TAB.ER.12H PO (06:20)
[2024-10-13] MEDS: ACETAMINOPHEN 500 MG TABLET 1000 MG PO (06:20)
[2024-10-13] MEDS: SODIUM CHLORIDE 0.9 % (FLUSH) 10 ML SYRINGE IVF (06:29)
[2024-10-13] MEDS: MIDAZOLAM HCL 1 MG/ML inj IVP (07:10)
--- NOTE | 2024-10-13 07:21 | SUR.PREOP ---
TIME?OUT:?0710 PT/oNah FREITAS RN/Tai BERMUDEZ MDA?VERIFICATION?OF?SURGICAL?SITE,?PROCEDURE,?AND?CONSENT OBTAINED?PRIOR?TO?INVASIVE?PROCEDURE.
[2024-10-13] MEDS: TRANEXAMIC ACID 100 MG/ML INJ 1000 MG IV (07:42)
--- NOTE | 2024-10-13 08:52 | W.PM.NB ---
Nerve Block Nerve Block Time Seen by Provider: 07:10 Date Seen: 10/13/24 Type of block requested by surgeon for post-operative analgesia: adductor canal Side: left Time out performed: Yes Verification of patient name: Yes Verification of date of : Yes Site marking: site marked Name of person performing procedure: Eulalio Continuous monitoring Was continuous monitoring of O2 sat, B/P, product accountant, recorded every 15 minutes?: Yes Procedure Checklist: sterile prep, needles and gloves Ultrasound guided. Images saved: Yes Medications given in 5ml increments after negative aspiration: Marcaine %: 0.25 mL: 15 Needle gauge: 20 Precedex (mcg): 25 Patient tolerated procedure well: Yes Block Charges Block Charge (with Pro Fee): Femoral Nerve Use of Ultrasound Machine for Block: Yes- US Guidance/pain block
--- NOTE | 2024-10-13 08:52 | W.PM.NB ---
Nerve Block Nerve Block Time Seen by Provider: 07:10 Date Seen: 10/13/24 Type of block requested by surgeon for post-operative analgesia: geniculars Side: left Time out performed: Yes Verification of patient name: Yes Verification of date of : Yes Site marking: site marked Name of person performing procedure: Eulalio Continuous monitoring Was continuous monitoring of O2 sat, B/P, cardiac cath technologist, recorded every 15 minutes?: Yes Procedure Checklist: sterile prep, needles and gloves Ultrasound guided. Images saved: Yes Medications given in 5ml increments after negative aspiration: Marcaine %: 0.25 mL: 9 Needle gauge: 25 Patient tolerated procedure well: Yes Block Charges Block Charge (with Pro Fee): Genicular Nerve Block
--- NOTE | 2024-10-13 08:53 | P.ANES_ITS ---
Anesthesia Charges Start Date/Time Anesthesia Start Date: 10/13/24 Anesthesia Start Time: 07:15 Stop Date/Time Anesthesia Stop Date: 10/13/24 Anesthesia Stop Time: 09:41 Coding CPT Codes CPT Codes: ANESTH KNEE ARTHROPLASTY - 69476 ([id number]) P3 - PATIENT W/SEVERE SYS DISEASE, QK - SPEAR FISHER 2-4 CNCRNT ANES PROC, QX - CROP PULLER SVC W/ MD MED DIRECTION
--- NOTE | 2024-10-13 08:53 | W.ANESCHARGE ---
Anesthesia Charges Start Date/Time Anesthesia Start Date: 10/13/24 Anesthesia Start Time: 07:15 Stop Date/Time Anesthesia Stop Date: 10/13/24 Anesthesia Stop Time: 09:41 Coding CPT Codes CPT Codes: ANESTH KNEE ARTHROPLASTY - 32784 ([id number]) P3 - PATIENT W/SEVERE SYS DISEASE, QK - ENGRAVING PLATE MAKER 2-4 CNCRNT ANES PROC, QX - SUBMARINE ADVISORY TEAM WATCH OFFICER SVC W/ MD MED DIRECTION
--- NOTE | 2024-10-13 08:58 | CRLHL7_ITS ---
For Patients: As a result of the Cures Act, medical imaging exams and procedure reports are released immediately into your electronic medical record. You may view this report before your referring provider. If you have questions, please contact your health care provider. Indication: POST OP Technique: Two views left knee Findings/Impression: Hardware from a left total knee arthroplasty is in satisfactory position. Bone alignment is normal. No sign of acute fracture. Postop changes are within normal limits. Dictated by Kevon Richards MD @ 10/13/2024 10:27:11 AM (Electronically Signed)
--- NOTE | 2024-10-13 09:42 | P.ANES_ITS ---
Anesthesia Charges Start Date/Time Anesthesia Start Date: 10/13/24 Anesthesia Start Time: 07:15 Stop Date/Time Anesthesia Stop Date: 10/13/24 Anesthesia Stop Time: 09:41 Coding CPT Codes CPT Codes: ANESTH KNEE ARTHROPLASTY - 80744 ([id number]) P3 - PATIENT W/SEVERE SYS DISEASE, QK - SOLAR ENERGY SYSTEM INSTALLER 2-4 CNCRNT ANES PROC, QX - CLINICAL MANAGER HOME CARE SVC W/ MD MED DIRECTION
--- NOTE | 2024-10-13 09:42 | W.ANESCHARGE ---
Anesthesia Charges Start Date/Time Anesthesia Start Date: 10/13/24 Anesthesia Start Time: 07:15 Stop Date/Time Anesthesia Stop Date: 10/13/24 Anesthesia Stop Time: 09:41 Coding CPT Codes CPT Codes: ANESTH KNEE ARTHROPLASTY - 69877 ([id number]) P3 - PATIENT W/SEVERE SYS DISEASE, QK - DIRECTOR OF CLINICAL TRIALS 2-4 CNCRNT ANES PROC, QX - LOAN PROCESSING SUPERVISOR SVC W/ MD MED DIRECTION
--- NOTE | 2024-10-13 10:58 | PM.ORPRC ---
Procedure Note Date of procedure: 10/13/24 Procedure: PREOPERATIVE DIAGNOSIS: Left knee osteoarthritis, class 3 obesity POSTOPERATIVE DIAGNOSIS: Left knee osteoarthritis, class 3 obesity NAME OF OPERATION: Left total knee arthroplasty SURGEON: Nazario Watt MD PRODUCT TRAINER: DANIEL Carroll ANESTHESIA: Spinal ESTIMATED BLOOD LOSS: 0 mL COMPLICATIONS: None SPECIMENS: None DRAINS: None PREOPERATIVE ANTIBIOTICS: Ancef 2g, antibiotic impregnated cement IMPLANTS: 1. J&J Attune revision CRS # 5 posterior stabilized femur, 14 mm x 50 mm cemented stem 2. Revision CRS # 5 fixed-bearing tibia, 14 mm x 50 mm cemented stem 3. # 5 posterior stabilized, 8 mm fixed-bearing polyethylene 4. 38 patella INDICATIONS: The patient is a 59-year-old with a longstanding history of severe, unrelenting left knee pain secondary to end-stage (grade IV) left knee osteoarthritis. Despite appropriate nonoperative management, including activity modification, anti-inflammatories, cejd-fas-sfipqcp pain medication, bracing, physical therapy, and injections they continue to have pain and disability. Operative intervention was offered. The risks, benefits and expected outcomes were discussed in detail. These included but were not limited to: Infection, bleeding, injury to blood vessel or nerve, venous thromboembolism. All questions were answered to their satisfaction. Use of an radiology physician assistant was necessary throughout the case for patient positioning and safety, soft tissue retraction, and closure. A modifier 22 should be added to this case. Patient has a weight of 100 kg, with a BMI of 39. To reduce the risk of aseptic loosening, stemmed components were used. This added time and cost to complete the case. PROCEDURE: Spinal anesthesia was administered. The patient was placed supine on the operating table. The radiology physician assistant made sure the patient was positioned appropriately. The lower extremity was prepped and draped in the usual sterile fashion. The limb was exsanguinated with the Bennett bandage. The pneumatic tourniquet was inflated to 250 mmHg. A standard anterior incision was made with the knee in flexion. Subcutaneous dissection was sharply taken through fascial layer #1. Full-thickness medial and lateral flaps were elevated. The radiology physician assistant retracted the soft tissues and protected them throughout the case. A standard subvastus approach was made. The patella was subluxed. The infrapatellar fat pad was debrided. The menisci and cruciate ligaments were sharply d?brided. Marginal osteophytes were d?brided with the rongeur. The drill was used to penetrate the femoral canal. The intramedullary femoral guide was placed for a 5-degree valgus cut, removing 10 mm off the distal femur. The saw was used to make the cut. Whitesides line and the trans epicondylar axis were marked. The femoral sizing guide was pinned onto the distal femur. Three degrees of external rotation nicely parallels the transepicondylar axis. Pins were placed for posterior referencing. The four-in-one cutting guide was pinned onto the distal femur. The anterior, posterior, and chamfer cuts were made. The radiology physician assistant protected the collateral ligaments. The revision trial was placed. The box cuts were made. The drill was used x2. The stemmed, boxed trial was placed and was an excellent fit. Attention was then turned to the proximal tibia. The intramedullary tibial guide was placed for a neutral varus/valgus cut with 3 degrees of posterior slope, removing 2 mm based off the medial tibial surface. The radiology physician assistant protected the collateral ligaments and the neurovascular bundle. The saw was used to make the cut. Trial components were placed. The knee was nicely balanced in both flexion and extension. The trial components were removed. The tray was placed in appropriate rotation, parallel to our tibial cutting pins. It was pinned by the radiology physician assistant and the drill x2 was used. The stemmed tibial trial was placed. The punch was used. The tray was removed. The punch was used again. Attention was then turned to the patella. [place] patellar thickness was 23 mm. The lobster claw resection guide was used with the 9.5 mm adolfo. The saw was used to make the cut. Drill holes were made by the radiology physician assistant. The trial was placed and was an excellent fit. Cancellous surfaces were irrigated with pulse lavage and thoroughly dried by the radiology physician assistant. We cemented the tibial component, then the femoral component. We impacted the 8 mm polyethylene onto the tibial tray. The knee was brought into full extension. We then cemented the patellar component. Excessive cement was removed. The cement was allowed to harden. The knee was taken through a range of motion and was found to be nicely balanced in both flexion and extension. The patella tracks centrally. The radiology physician assistant did a three minute dilute Betadine solution soak. The radiology physician assistant irrigated the wound with 3 liters of normal saline via pulse lavage. The radiology physician assistant reapproximated the extensor mechanism with #1 Vicryl in an interrupted lpxcld-ao-ystvj fashion. The radiology physician assistant then ran the extensor mechanism with a #1 PDO Stratafix. The radiology physician assistant closed the subcutaneous tissues with a 3-0 Stratafix and the skin with a running 3-0 Stratafix in a subcuticular fashion. Glue was used to seal the skin. The radiology physician assistant placed a dry dressing. Sponge and needle counts were correct x2. The patient tolerated the procedure well. There were no apparent complications. They were carefully transferred to the hospital bed and taken to the postanesthesia care unit in satisfactory condition. PLAN: The patient will be mobilized with physical therapy. Aspirin will be used for DVT prophylaxis. They will be discharged to home once medically appropriate.
== END 2024-10-13 14:10 | disposition home or self-care (01) ==
LOC: OR 06:05
PROVIDERS: PCP Internal Medicine; Visit Provider Orthopaedic Surgery
PROC: (CPT 27447; principal; 2024-10-13 07:15)
DX: M17.12 Unilateral primary osteoarthritis, left knee (principal); G89.18 Other acute postprocedural pain; E66.813 Obesity, class 3; Z68.39 Body mass index [BMI] 39.0-39.9, adult; G47.33 Obstructive sleep apnea (adult) (pediatric); E78.2 Mixed hyperlipidemia; Z98.84 Bariatric surgery status
CPT/HCPCS: 27447; 01402; 64447; 64454; 73560; 76942; 97110; 97116; 97161; A9270; C1776; J0665; J0690; J1100; J2250; J2371; J2405; J2704; J3010; J7120